=== PATIENT | female | born 1955 | race Caucasian/White ===

== ENCOUNTER → 2018-04-01 15:52 | Outpatient (CLI) | payer OTHER, SELFPAY ==
[2018-04-01 17:37] LABS: Absolute Lymphocyte Count 1.93 X10^3/ul (0.83-4.51); Absolute Neutrophil Count 4.4 X10^3/uL (2.0-7.7); Basophil# 0.03 X10^3/uL; Basophil% 0.4 % (0-1); Eosinophil# 0.11 X10^3/uL; Eosinophils% 1.6 % (0-5); Hematocrit 39.7 % (37-47); Hemoglobin 13.1 g/dl (12.0-15.0); Lymphocyte # 1.93 X10^3/ul (4.0); Lymphocyte % 27.4 % (19-41); Mean Corpuscular Hgb 28.2 pg (27.0-32.0); Mean Corpuscular Volume 85.4 fL (81-99); Mean Platelet Vol. 13.3 fl (6.2-12.0); Monocyte# 0.55 X10^3/uL; Monocyte% 7.8 % (0-10); Neutrophil # 4.41 X10^3/uL (2.7-7.7); Neutrophil % 62.5 % (47-70); Platelet Count 169 K/mm3 (150-450); RBC Distribution Width CV 15.2 % (11.6-14.6); RBC Distribution Width SD 46.2 fl (35.1-43.9); Red Blood Count 4.65 M/mm3 (4.2-5.4); White Blood Count 7.1 K/mm3 (4.4-11.0)
[2018-04-01 17:54] LABS: POSITIVE COUNT NO; POSITIVE DIFFERENTIAL NO; POSITIVE MORPHOLOGY NO
[2018-04-01 17:58] LABS: D-Dimer Quantitative (DVT/PE) 1.84 FEU/ug/m (0.27-0.49)
[2018-04-01 18:02] LABS: ALB/GLOB Ratio 0.9 RATIO (0.9-2.4); AST(SGOT) 81 U/L (15-37); Alanine Aminotransfer ALT/SGPT 119 U/L (13-56); Albumin, Serum 3.6 g/dL (3.2-5.0); Alkaline Phosphatase 92 U/L (45-117); Anion Gap 10 (5-15); BUN 9 mg/dL (7-18); BUN/Creat Ratio 11.8 RATIO (10-20); Calcium,Total 8.8 mg/dL (8.5-10.1); Chloride 110 mmol/L (98-107); Creatinine, Serum 0.76 mg/dL (0.55-1.02); EST Glomerular Filtration Rate 81 mL/min (>60); Est Glom Filt Rate - Afr Amer 98 mL/min (>60); Globulin 3.8 g/dL (2.2-4.2); Glucose 85 mg/dL (74-106); Potassium 3.6 mmol/L (3.5-5.1); Protein, Total 7.4 g/dL (6.4-8.2); Sodium Level 145 mmol/L (136-145); Thyroid Stim Hormone (TSH) 7.01 uIU/mL (0.358-3.74)
== END ==
PROVIDERS: Family Provider Family Medicine; PCP Family Medicine; Visit Provider Family Medicine
DX: I26.99 Other pulmonary embolism without acute cor pulmonale (principal); R06.00 Dyspnea, unspecified; R05 Cough; R00.0 Tachycardia, unspecified
CPT/HCPCS: 36415; 80053; 84443; 85025; 85379

== ENCOUNTER → 2018-04-03 07:39 | Outpatient (CLI) | payer OTHER, SELFPAY ==
--- NOTE | 2018-04-03 07:45 | CT_ITS ---
STUDY: CTA CHEST REASON FOR EXAM: Female, 62 years old. Short of breath. Elevated d-dimer. RADIATION DOSAGE (If Supplied By Facility): CTDIvol = ( 26.69 ) mGy, DLP = ( 661.04 ) mGycm TECHNIQUE: The examination was performed with the intravenous administration of 100CC ml of Isovue 370 contrast material. Post-processing of the angiographic images was performed, with multiplanar reformation and 3D reconstruction. Individualized dose optimization techniques were used for this CT. COMPARISON: None. FINDINGS: Normal enhancement of the main pulmonary artery and right and left pulmonary arteries. Normal enhancement of the bilateral peripheral pulmonary arteries. There is no demonstrated pulmonary embolism. Normal thoracic aorta and visualized great vessels. There is no demonstrated aortic dissection. Normal heart and pericardium. There is suspicious for mediastinal adenopathy primarily along the right paratracheal region where a 2.8 cm right paratracheal lymph node is seen on axial image 162. Malignancy cannot be excluded. Normal visualized trachea and bronchi. The lungs are well expanded. Normal pulmonary parenchyma. Bilateral small pleural effusions right worse than left. Normal chest wall structures. Normal osseous structures. Normal visualized upper abdomen. CT/CTA Chest W/WO Contrast IMPRESSION: Normal CTA chest examination, without a demonstrated pulmonary embolism or arterial dissection. Bilateral pleural effusions. Suspicious upper mediastinal adenopathy with one lymph node as much as 2.8 cm. Consider biopsy. Electronically Signed: Greg Rodriguez MD at 19:36 EDT , Service support ,
== END ==
PROVIDERS: Family Provider Family Medicine; PCP Family Medicine; Visit Provider Family Medicine
DX: R06.00 Dyspnea, unspecified (principal); R05 Cough; R79.89 Other specified abnormal findings of blood chemistry
CPT/HCPCS: 71275; Q9967

== ENCOUNTER → 2018-05-14 10:58 | Outpatient (CLI) | payer OTHER, SELFPAY ==
--- NOTE | 2018-05-14 10:59 | RAD_ITS ---
STUDY: X-RAY CHEST REASON FOR EXAM: Female, 62 years old. Atrial fibrillation. TECHNIQUE: PA and lateral chest COMPARISON: None. FINDINGS: The lungs are clear and expanded. The minimal left pleural effusion may be present. Mild cardiomegaly. Normal mediastinum and rita. Normal visualized pulmonary arteries. Normal visualized aortic arch and descending thoracic aorta. Degenerative changes of the thoracic spine. Normal visualized ribs, clavicles, and shoulders. There is no demonstrated abnormality of the visualized soft tissue structures of the upper abdomen. RAD/Chest PA and Lateral IMPRESSION: Mild cardiomegaly. Possible minimal left pleural effusion. Electronically Signed: Antoine Schofield MD at 7:59 EDT , Service support ,
== END ==
PROVIDERS: Family Provider Family Medicine; PCP Family Medicine; Visit Provider Internal Medicine Cardiovascular Disease
DX: I48.91 Unspecified atrial fibrillation (principal); R06.02 Shortness of breath; R06.00 Dyspnea, unspecified
CPT/HCPCS: 71046

== ENCOUNTER → 2018-05-28 06:45 | Outpatient (CLI) | payer OTHER, SELFPAY ==
--- NOTE | 2018-05-28 06:47 | ECHOD_ITS ---
Reason For Study: AFIB/FLUTTER Procedure This was a 2D Doppler, Color Flow transthoracic echocardiogram. The exam was of fair technical quality due to body habitus. The study was technically difficult. Exam performed in department. Left Ventricle Normal LV size. Left ventricular systolic function is normal. The estimated ejection fraction is 55 %. Unable to assess diastolic dysfunction. No regional wall motion abnormalities noted. Right Ventricle Normal RV size. Normal systolic function. Atria The left atrium is mildly enlarged. The right atrium is moderately enlarged. No doppler evidence for ASD. Mitral Valve There is no mitral annular calcification. Normal mitral valve. Mild-Moderate (1-2+) mitral valve insufficiency. Tricuspid Valve Normal tricuspid valve. Moderate (2+) eccentric tricuspid valve insufficiency. Right ventricular systolic pressure estimated to be 30 mmHg. Aortic Valve Trisinus/trileaflet aortic valve. Mild diffuse aortic valve thickening. Mild focal aortic valve calcification. Pulmonic Valve The pulmonic valve is not well visualized. Great Vessels Normal sized aortic root. Pericardium/Pleural Trivial pericardial effusion. There are no echocardiographic indications of cardiac tamponade. MMode/2D Measurements & Calculations LVIDd: 5.3 cm IVSd: 1.1 cm Ao root diam: 3.1 cm LVIDs: 3.9 cm LVPWd: 1.1 cm LA dimension: 4.8 cm RVDd: 3.7 cm FS: 26.1 % LAV(MOD-bp): 88.1 ml LA A4 area: 24.8 cm2 RA A4 area: 23.5 cm2 LAV(MOD-bp) Indexed: 38.9 ml/m2 LAV(MOD-sp2): 93.4 ml LAV(MOD-sp4): 85.8 ml Doppler Measurements & Calculations MV E max rickie: 118.8 cm/sec Ao V2 max: 137.3 cm/sec LV V1 max: 94.4 cm/sec Ao max P.6 mmHg LV V1 max P.6 mmHg PA V2 max: 88.8 cm/sec TR max rickie: 260.5 cm/sec TR max P.3 mmHg Interpretation Summary The study was technically difficult. Left ventricular systolic function is normal. The estimated ejection fraction is 55 %. The left atrium is mildly enlarged. The right atrium is moderately enlarged. Mild-Moderate (1-2+) mitral valve insufficiency. Moderate (2+) eccentric tricuspid valve insufficiency. Mild diffuse aortic valve thickening. Mild focal aortic valve calcification. Trivial pericardial effusion. There are no echocardiographic indications of cardiac tamponade. Right ventricular systolic pressure estimated to be 30 mmHg. Unable to assess diastolic dysfunction. Ordering Physician: Mark Walters Referring Physician: Jared Power Performed By: Jessie Rodrigues, DURGA, RVT
--- NOTE | 2018-05-28 18:09 | STRESSREP ---
Stress Test Report Date: 02/12/2018 Procedure: Pharmacologic stress nuclear imaging study Indications: Shortness of breath/dyspnea; atrial fibrillation Consent: Per the patient Procedure: The patient underwent pharmacologic (Regadenoson) evaluation with a peak heart rate of 117 beats per minute (75 predicted maximal heart rate) and a peak blood pressure of 142/82 mmHg. The baseline ECG demonstrated atrial fibrillation; nonspecific T-wave abnormality. The peak pharmacologic ECG demonstrated continued nonspecific T-wave abnormality. There was an isolated PVC during recovery. There was no complaint of chest discomfort during pharmacologic infusion or recovery. The examination was discontinued secondary to completion of protocol. Impression: 1. Pharmacologic (Regadenoson) evaluation 2. Peak pharmacologic ECG with continued nonspecific T-wave abnormality. 3. There was an isolated PVC during recovery. 4. Nuclear images pending Myocardial perfusion imaging study: Technique: The patient was injected with 14.6 millicuries of technetium 99m Cardiolite and subsequently rest SPECT Cardiolite nuclear imaging was obtained in the horizontal long, vertical long, and short axis views. The patient underwent pharmacologic (Regadenoson) evaluation with a peak heart rate of 117 beats per minute (75 % percent predicted maximal heart rate) and a peak blood pressure of 142/82 mmHg. The patient was injected with 44.8 millicuries of technetium 99m Cardiolite and subsequently stress SPECT Cardiolite nuclear imaging was obtained in the horizontal long, vertical long, and short axis views. A gated Cardiolite study at peak stress was obtained. Interpretation: Rest and stress SPECT Cardiolite nuclear imaging status post realignment, normalization, and attenuation correction demonstrate relative uniform tracer uptake and myocardial perfusion appearing within normal limits. There is end systolic thickening and brightening. The gated Cardiolite study demonstrates myocardial thickening and inward wall motion. The reported LVEF is 55 %. Impression: 1. Rest and stress SPECT Cardiolite nuclear imaging demonstrate relative uniform tracer uptake and myocardial perfusion appearing within normal limits. 2. The gated Cardiolite study reports an LVEF of 55 %. This note was generated with [employer] software. It may contain incorrect words, spelling, and punctuation that were not noted in checking the note before signing.
--- NOTE | 2018-05-28 18:13 | STRESSREP_ITS ---
Stress Test Report Date: 02/12/2018 Procedure: Pharmacologic stress nuclear imaging study Indications: Shortness of breath/dyspnea; atrial fibrillation Consent: Per the patient Procedure: The patient underwent pharmacologic (Regadenoson) evaluation with a peak heart rate of 117 beats per minute (75 predicted maximal heart rate) and a peak blood pressure of 142/82 mmHg. The baseline ECG demonstrated atrial fibrillation; nonspecific T-wave abnormality. The peak pharmacologic ECG demonstrated continued nonspecific T- wave abnormality. There was an isolated PVC during recovery. There was no complaint of chest discomfort during pharmacologic infusion or recovery. The examination was discontinued secondary to completion of protocol. Impression: 1. Pharmacologic (Regadenoson) evaluation 2. Peak pharmacologic ECG with continued nonspecific T-wave abnormality. 3. There was an isolated PVC during recovery. 4. Nuclear images pending Myocardial perfusion imaging study: Technique: The patient was injected with 14.6 millicuries of technetium 99m Cardiolite and subsequently rest SPECT Cardiolite nuclear imaging was obtained in the horizontal long, vertical long, and short axis views. The patient underwent pharmacologic (Regadenoson) evaluation with a peak heart rate of 117 beats per minute (75 % percent predicted maximal heart rate) and a peak blood pressure of 142/82 mmHg. The patient was injected with 44.8 millicuries of technetium 99m Cardiolite and subsequently stress SPECT Cardiolite nuclear imaging was obtained in the horizontal long, vertical long, and short axis views. A gated Cardiolite study at peak stress was obtained. Interpretation: Rest and stress SPECT Cardiolite nuclear imaging status post realignment, normalization, and attenuation correction demonstrate relative uniform tracer uptake and myocardial perfusion appearing within normal limits. There is end systolic thickening and brightening. The gated Cardiolite study demonstrates myocardial thickening and inward wall motion. The reported LVEF is 55 %. Impression: 1. Rest and stress SPECT Cardiolite nuclear imaging demonstrate relative uniform tracer uptake and myocardial perfusion appearing within normal limits. 2. The gated Cardiolite study reports an LVEF of 55 %. This note was generated with [employer] software. It may contain incorrect words, spelling, and punctuation that were not noted in checking the note before signing.
== END ==
PROVIDERS: Family Provider Family Medicine; PCP Family Medicine; Visit Provider Internal Medicine Cardiovascular Disease
DX: I48.91 Unspecified atrial fibrillation (principal); I48.92 Unspecified atrial flutter
CPT/HCPCS: 78452; 93017; 93306; A9500; A4216; J2785

== ENCOUNTER → 2018-06-27 10:09 | Outpatient (CLI) | payer OTHER, SELFPAY ==
--- NOTE | 2018-06-27 10:10 | CT_ITS ---
STUDY: CT CHEST WITH CONTRAST REASON FOR EXAM: Female, 62 years old. Mediastinal lymphadenopathy, follow-up. RADIATION DOSAGE (If Supplied By Facility): CTDIvol = ( 35.10 ) mGy, DLP = ( 922.24 ) mGycm TECHNIQUE: Transaxial imaging was performed following intravenous administration of 100 ml of Isovue 300 contrast material. Coronal and sagittal 2-D MPR. Individualized dose optimization techniques were used for this CT. COMPARISON: CTA chest 04/03/2018. FINDINGS: Supraclavicular: No acute process. Thoracic body wall soft tissues: No acute process. Osseous structures: Mild scoliosis, osteopenia, mild thoracic kyphosis. Multilevel cervical degenerative disc disease with uncovertebral joint hypertrophy contributing to foraminal stenosis. No acute osseous process. Upper abdomen: Mild pancreatic atrophy. No acute process is evident in limited evaluation. Mediastinum: Normal esophagus. The degree of mediastinal lymphadenopathy has substantially improved compared to recent prior imaging. The largest residual lymph node has a short axis dimension of approximately 19 mm. The same node previously had a least dimension of about 23 mm. Several other nodes are present, considerably smaller than seen on prior study. Heart: Mild cardiomegaly. Small pericardial effusion. The pericardial effusion is improved. No visible coronary calcifications. Aorta: Mild nonaneurysmal ectasia 3.4 cm. Minimal atherosclerosis. Widely patent three-vessel cervical arch branching. No dissection. Pulmonary arteries: Ectatic central pulmonary arteries, main pulmonary artery 3.3 cm. There is no large central pulmonary embolus. Lungs: No residual pleural effusion. Minimal left lung base atelectasis. No infiltrate or focal suspicious lesion. Normal airways. CT/Chest WITH Contrast IMPRESSION: Markedly improved mediastinal lymphadenopathy. Resolved pleural effusions. Small pericardial effusion, improving. No acute pulmonary process at this time. Mild cardiomegaly. Mild aortomegaly. Ectatic central pulmonary arteries. Electronically Signed: Mohit Colon, at 17:56 EDT Tel , Service support ,
[2018-06-27 10:30] LABS: CREATININE FINGERSTICK < 0.6 mg/dL (0.55-1.02); EGFR FINGERSTICK > 60.0000 mL/min (>60)
== END ==
PROVIDERS: Family Provider Family Medicine; PCP Family Medicine; Visit Provider Internal Medicine Critical Care Medicine
DX: R59.0 Localized enlarged lymph nodes (principal)
CPT/HCPCS: 71260; Q9967

== ENCOUNTER → 2018-09-18 13:15 | Outpatient (CLI) | payer MEDICARE, SELFPAY ==
--- NOTE | 2018-09-18 13:23 | RAD_ITS ---
STUDY: X-RAY - RIGHT SHOULDER REASON FOR EXAM: Female, 63 years old. Pain. TECHNIQUE: 3 view(s) of the shoulder. COMPARISON: None. FINDINGS: There is no evidence of fracture or dislocation. There are moderate degenerative changes in the acromioclavicular joint. There are no radiodense foreign bodies. RAD/Shoulder min 2 Views IMPRESSION: No fracture or dislocation. Moderate degenerative changes in the acromioclavicular joint. Electronically Signed: Buzz Rodriguez, at 14:24 EDT Tel , Service support ,
--- NOTE | 2018-09-18 13:23 | RAD_ITS ---
STUDY: X-RAY - RIGHT KNEE REASON FOR EXAM: Female, 63 years old. Pain TECHNIQUE: 5 view(s) of the knee. COMPARISON: None. FINDINGS: There is no evidence of fracture or dislocation. There are severe tricompartmental degenerative changes. There are no radiodense foreign bodies. RAD/Knee 4 or More Views IMPRESSION: No fracture or dislocation. Severe tricompartmental degenerative changes. Electronically Signed: Buzz Rodriguez, at 14:22 EDT Tel , Service support ,
--- NOTE | 2018-09-18 13:24 | RAD_ITS ---
STUDY: X-RAY - LEFT KNEE REASON FOR EXAM: Female, 63 years old. Pain TECHNIQUE: Four view(s) of the knee were obtained. COMPARISON: Left knee report dated May 08, 2012 FINDINGS: There are small osteophytes on the distal femur. There are small osteophytes on the tibial plateau. There is moderate narrowing of the medial femorotibial compartment. Normal lateral femorotibial compartment. There is mild degenerative arthrosis of the patellofemoral articulation. There is no fullness above the patella. The soft tissue structures are unremarkable. RAD/Knee 4 or More Views IMPRESSION: There are degenerative changes in the left knee, most severe and moderate in the medial compartment. Electronically Signed: Jackelyn Núñez MD at 0:06 EDT Tel Direct: [phone], Service support ,
== END ==
PROVIDERS: Family Provider Family Medicine; PCP Family Medicine
DX: S43.401A Unspecified sprain of right shoulder joint, initial encounter (principal); S83.91XA Sprain of unspecified site of right knee, initial encounter; S83.92XA Sprain of unspecified site of left knee, initial encounter; S46.911A Strain of unspecified muscle, fascia and tendon at shoulder and upper arm level, right arm, initial encounter; S86.911A Strain of unspecified muscle(s) and tendon(s) at lower leg level, right leg, initial encounter; S86.912A Strain of unspecified muscle(s) and tendon(s) at lower leg level, left leg, initial encounter; X58.XXXA Exposure to other specified factors, initial encounter; Y93.9 Activity, unspecified; Y92.9 Unspecified place or not applicable; Y99.9 Unspecified external cause status
CPT/HCPCS: 73030; 73564

== ENCOUNTER → 2018-10-31 12:29 | Outpatient (REF) | payer MEDICARE, SELFPAY | LOC: CVS 12:29 | PROVIDERS: Family Provider Family Medicine; PCP Family Medicine; Referring Provider Internal Medicine Cardiovascular Disease; Visit Provider Internal Medicine Cardiovascular Disease | DX: I48.91 Unspecified atrial fibrillation (principal) | CPT/HCPCS: 93270 ==

== ENCOUNTER → 2019-11-06 08:57 | Outpatient (CLI) | payer MEDICARE, SELFPAY ==
[2019-10-07 06:58] VITALS: BMI 50.2
[2019-11-06 12:22] LABS: Absolute Lymphocyte Count 1.91 X10^3/uL (0.83-4.51); Absolute Neutrophil Count 3.6 X10^3/uL (2.0-7.7); Basophil# 0.03 X10^3/uL; Basophil% 0.5 % (0-1); Eosinophil# 0.09 X10^3/uL; Eosinophils% 1.5 % (0-5); Hematocrit 44.2 % (37-47); Hemoglobin 14.2 g/dL (12.0-15.0); Lymphocyte # 1.91 X10^3/ul (4.0); Lymphocyte % 31.3 % (19-41); Mean Corp Hgb Conc 32.1 g/dL (32-36); Mean Corpuscular Volume 87.2 fL (81-99); Monocyte# 0.41 X10^3/uL; Monocyte% 6.7 % (0-10); NRBC Flagged by Analyzer 0 % (0-5); Neutrophil # 3.64 X10^3/uL (2.7-7.7); Neutrophil % 59.5 % (47-70); Platelet Count 176 K/mm3 (150-450); RBC Distribution Width CV 13.6 % (11.6-14.6); RBC Distribution Width SD 42.7 fl (35.1-43.9); Red Blood Count 5.07 M/mm3 (4.2-5.4); White Blood Count 6.1 K/mm3 (4.4-11.0)
[2019-11-06 12:59] LABS: AST(SGOT) 31 U/L (15-37); Alanine Aminotransfer ALT/SGPT 58 U/L (13-56); Albumin, Serum 3.9 g/dL (3.2-5.0); Alkaline Phosphatase 80 U/L (45-117); Anion Gap 8 (5-15); BUN 13 mg/dL (7-18); BUN/Creat Ratio 15.3 RATIO (10-20); Calcium,Total 9.1 mg/dL (8.5-10.1); Chloride 109 mmol/L (98-107); Cholesterol 178 mg/dL (200); Creatinine, Serum 0.85 mg/dL (0.55-1.02); EST Glomerular Filtration Rate 71 mL/min (>60); Est Glom Filt Rate - Afr Amer 86 mL/min (>60); Free T3 3.2 pg/mL (2.18-3.98); Globulin 3.8 g/dL (2.2-4.2); Glucose 98 mg/dL (74-106); High Density Lipoprotein 41 mg/dL; Potassium 3.5 mmol/L (3.5-5.1); Protein, Total 7.7 g/dL (6.4-8.2); Sodium Level 144 mmol/L (136-145); T4 Free Direct 1.05 ng/dL (0.76-1.46); Triglycerides 132 mg/dL; Very Low Density Lipoprotein 26 mg/dL (5-40)
[2019-11-14 16:40] LABS: T3 Reverse 29.2 ng/dL (9.2-24.1); Thyroid Peroxidase AB 6 IU/mL (0-34)
== END ==
PROVIDERS: Family Provider Family Medicine; PCP Family Medicine; Visit Provider Family Medicine
DX: R94.6 Abnormal results of thyroid function studies (principal); R74.8 Abnormal levels of other serum enzymes; E78.5 Hyperlipidemia, unspecified; I48.0 Paroxysmal atrial fibrillation; Z51.81 Encounter for therapeutic drug level monitoring
CPT/HCPCS: 36415; 80053; 80061; 84439; 84443; 84481; 84482; 85025; 86376

== ENCOUNTER → 2020-07-26 10:16 | Outpatient (CLI) | payer MEDICARE, SELFPAY ==
[2020-01-05 10:33] VITALS: BMI 50.7
[2020-07-28 10:39] LABS: HPV APTIMA, High Risk Negative (Negative)
[2020-07-28 10:40] LABS: HPV Reflexed? YES, CHARGE PATIENT
== END ==
PROVIDERS: PCP Family Medicine; Visit Provider Student in an Organized Health Care Education/Training Program
DX: Z12.4 Encounter for screening for malignant neoplasm of cervix (principal)
CPT/HCPCS: 87624; 88175; G0145

== ENCOUNTER 2022-01-06 13:24 | Outpatient (CLI) | payer MEDICARE, SELFPAY ==
[2022-01-06 15:39] LABS: AST(SGOT) 53 U/L (15-37); Alanine Aminotransfer ALT/SGPT 67 U/L (13-56); Albumin, Serum 3.7 g/dL (3.2-5.0); Alkaline Phosphatase 76 U/L (45-117); Cholesterol 155 mg/dL (200); High Density Lipoprotein 45 mg/dL; Protein, Total 7.7 g/dL (6.4-8.2); Triglycerides 91 mg/dL; Very Low Density Lipoprotein 18 mg/dL (5-40)
== END 2022-01-06 23:59 | disposition home or self-care (01) ==
PROVIDERS: PCP Family Medicine; Referring Provider Internal Medicine Cardiovascular Disease; Visit Provider Internal Medicine Cardiovascular Disease
DX: E66.01 Morbid (severe) obesity due to excess calories (principal); I48.0 Paroxysmal atrial fibrillation; I38 Endocarditis, valve unspecified
CPT/HCPCS: 36415; 80061; 80076

== ENCOUNTER 2022-02-07 09:35 | Outpatient (CLI) | payer MEDICARE, SELFPAY ==
--- NOTE | 2022-02-07 09:37 | ECHOCS_ITS ---
Reason For Study: ATRIAL FIB-FLUTTER Procedure This was a 2D Doppler, Color Flow transthoracic echocardiogram. The study was technically difficult. Contrast injection was performed. Exam performed in department. Left Ventricle Normal LV size. Left ventricular systolic function is normal. The estimated ejection fraction is 55 %. Unable to assess diastolic dysfunction. No regional wall motion abnormalities noted. Right Ventricle Normal RV size. Normal systolic function. Atria Normal left atrium. The right atrium is mildly enlarged. No doppler evidence for ASD. Mitral Valve There is no mitral annular calcification. Normal mitral valve. Trivial mitral valve insufficiency. Tricuspid Valve Normal tricuspid valve. Trivial tricuspid valve insufficiency. Right ventricular systolic pressure estimated to be 24 mmHg. Aortic Valve Trisinus/trileaflet aortic valve. Mild diffuse aortic valve thickening. Mild focal aortic valve calcification. Pulmonic Valve The pulmonic valve is not well visualized. Great Vessels Normal sized aortic root. Pericardium/Pleural No pericardial effusion. Medication 22 gauge I.V. with prn adaptor inserted into left arm. Diluted definity 5ml given slow IV push to enhance endocardial definition. MMode/2D Measurements & Calculations LVIDd: 5.2 cm IVSd: 1.0 cm Ao root diam: 3.3 cm LVIDs: 3.5 cm LVPWd: 1.0 cm RVDd: 4.0 cm FS: 34.1 % LAV(MOD-bp): 46.5 ml LVAd ap4: 27.4 cm2 SV(MOD-sp4): 53.8 ml LAV(MOD-bp) Indexed: 19.7 ml/m2 LVLd ap4: 7.2 cm LAV(MOD-sp2): 47.5 ml EDV(MOD-sp4): 87.4 ml LAV(MOD-sp4): 46.8 ml EDV(sp4-el): 88.8 ml LVAs ap4: 14.8 cm2 LVLs ap4: 5.4 cm ESV(MOD-sp4): 33.6 ml ESV(sp4-el): 34.2 ml EF(MOD-sp4): 61.5 % EF(sp4-el): 61.5 % SV(sp4-el): 54.6 ml LA A4 area: 18.9 cm2 LA dimension(2D): 3.9 cm RA A4 area: 22.5 cm2 Doppler Measurements & Calculations MV E max rickie: 88.9 cm/sec Ao V2 max: 145.7 cm/sec LV V1 max: 81.4 cm/sec Ao max P.5 mmHg LV V1 max P.7 mmHg PA V2 max: 80.6 cm/sec TR max rickie: 229.3 cm/sec TR max P.0 mmHg ECHO/Echo Complete W/ Contrast Interpretation Summary The study was technically difficult. Contrast injection was performed. Left ventricular systolic function is normal. The estimated ejection fraction is 55 %. The right atrium is mildly enlarged. Trivial mitral valve insufficiency. Trivial tricuspid valve insufficiency. Mild diffuse aortic valve thickening. Mild focal aortic valve calcification. Right ventricular systolic pressure estimated to be 24 mmHg. Unable to assess diastolic dysfunction. Ordering Physician: Mark Walters Referring Physician: ROXANA BORJAS Performed By: Brianna Childers RDCS
== END 2022-02-07 23:59 | disposition home or self-care (01) ==
LOC: CVS 09:36
PROVIDERS: PCP Family Medicine; Referring Provider Internal Medicine Cardiovascular Disease; Visit Provider Internal Medicine Cardiovascular Disease
DX: Z86.711 Personal history of pulmonary embolism (principal); I48.92 Unspecified atrial flutter
CPT/HCPCS: 93306; Q9957; A4216; C8929

== ENCOUNTER → 2022-09-21 | Outpatient (CLI) | payer MEDICARE, SELFPAY ==
--- NOTE | 2022-09-21 08:03 | ECHOD_ITS ---
Reason For Study: AFIB Procedure This was a 2D Doppler, Color Flow transthoracic echocardiogram. The study was technically difficult. Contrast injection was performed. Exam performed in department. Left Ventricle On the 2D echocardiographic and contrast enhanced images obtained there appears to be grossly normal left ventricular size, wall motion, and systolic function. The estimated ejection fraction is 55 %. Unable to assess diastolic dysfunction. Right Ventricle Based upon the 2D echocardiographic images obtained there appears to be grossly normal right ventricular size and systolic function. Atria The left atrium is moderately enlarged. The right atrium is moderately enlarged. No doppler evidence for ASD. Mitral Valve There is no mitral annular calcification. Normal mitral valve. Trivial mitral valve insufficiency. Tricuspid Valve Normal tricuspid valve. Trivial tricuspid valve insufficiency. Unable to estimate RV systolic pressure/pulmonary artery pressure due to technically difficult study. Aortic Valve Trisinus/trileaflet aortic valve. Mild focal aortic valve calcification. Pulmonic Valve The pulmonic valve is not well visualized. Great Vessels Normal sized aortic root. Pericardium/Pleural No pericardial effusion. Epicardial fat. Medication 22 gauge I.V. with prn adaptor inserted into right arm. Diluted definity 2ml given slow IV push to enhance endocardial definition. MMode/2D Measurements & Calculations LVIDd: 4.3 cm IVSd: 1.1 cm Ao root diam: 3.6 cm LVIDs: 3.0 cm LVPWd: 1.4 cm FS: 30.1 % LAV(MOD-sp4): 92.6 ml LA A4 area: 28.0 cm2 LA dimension(2D): 5.1 cm RA A4 area: 24.0 cm2 Doppler Measurements & Calculations MV E max rickie: 83.9 cm/sec Ao V2 max: 127.0 cm/sec LV V1 max: 61.5 cm/sec Ao max P.5 mmHg LV V1 max P.5 mmHg Ao V2 mean: 91.1 cm/sec LV V1 mean P.94 mmHg Ao mean P.7 mmHg LV V1 mean: 46.8 cm/sec Ao V2 VTI: 24.2 cm LV V1 VTI: 11.7 cm PA V2 max: 119.6 cm/sec PA V2 mean: 85.1 cm/sec ECHO/Echo Complete W/ Contrast Interpretation Summary The study was technically difficult. Contrast injection was performed. On the 2D echocardiographic and contrast enhanced images obtained there appears to be grossly normal left ventricular size, wall motion, and systolic function The estimated ejection fraction is 55 %. The left atrium is moderately enlarged. The right atrium is moderately enlarged. Trivial mitral valve insufficiency. Trivial tricuspid valve insufficiency. Mild focal aortic valve calcification. Epicardial fat. Unable to estimate RV systolic pressure/pulmonary artery pressure due to techni mark difficult study. Unable to assess diastolic dysfunction. Ordering Physician: Estefany Marroquin Referring Physician: Estefany Marroquin Performed By: Tonja Higgins RCS
== END | disposition home or self-care (01) ==
PROVIDERS: PCP Family Medicine; Referring Provider Physician Assistant Medical; Visit Provider Physician Assistant Medical
DX: I48.0 Paroxysmal atrial fibrillation (principal); I38 Endocarditis, valve unspecified; Z86.711 Personal history of pulmonary embolism
CPT/HCPCS: 93225; 93226; 93306; Q9957; A4216; C8929

== ENCOUNTER 2023-02-16 07:00 | Outpatient (RCR) | payer MEDICARE, SELFPAY ==
--- NOTE | 2023-01-19 09:02 | HP.PTEVAL_ITS ---
Patient's Visit Information MARY SELLERS is a 67 year old F referred to Physical Therapy by SILVINA DOBBS with a diagnosis of BILATERAL KNEE PAIN. Date of Evaluation: 01/19/23 Physical Therapist: Han Cuevas, PT, Cert MDT, OCS - Visit Plan Frequency: 2x /Week Duration: 4 Weeks Plan: PT INTERVETIONS ROM/FLEXABILITY KNEES ,STRENGTHENING QUADS/HAMS/HIPS ,FUNCTIONAL STRENGTHENING AND ENDURANCE - Subjective This 67 y/o female presents to physical therapy with bilateral knee. Patient has had knee pain many years. Patient seen tried stem cell and PPRP. Patient trying not have TKR . Patient has pain right > left medial > lateral. Patient has had x-rays showed severe DJD. Dr recommended PT . Aggravating walking ,standing unable to squat or kneel. Stairs one steps at time. Alleviating factors rest. Denies paresthesia/tingling. Patient pain affects sleeping. Patient pain affects QOL and function. Patient trying to avoid surgery. SOCIAL: . VOCATION: retired - Pain Right Knee Pain Intensity (Out of 10): 7 Pain Intensity Range: 10 Left Knee Pain Intensity (Out of 10): 6 Pain Intensity Range: 10 - Objective POSTURE: bilateral knee valgus. GAIT: antalgic gait waddling lateral reciprocal. NEURO: denies paresthesia/tingling. AROM: supine knee flexion right 10-95 ,left 10-90 degrees. MMT( peak force ) quads 12.7 right ,hamstrings 13.2 ,hamstrings 14.2 right ,left 14.7 ,hip flexion 16.7. FLEXABLITY: hamstrings min tight. STAIRS: one step time - Special Tests R Knee Valgus - MCL: Negative R Knee Varus - LCL: Negative R Knee Patellar Apprehension - PFS: Positive R Knee Patellar Grind - PFS: Positive L Knee Valgus - MCL: Negative L Knee Varus - LCL: Negative L Knee Patellar Apprehension - PFS: Positive L Knee Patellar Grind - PFS: Positive - Balance/Special Test Scores Lower Extremity Functional Score: 17 - Goals Goal 1:: I with HEP for knee's Goal Time Frame: 4-6 Weeks Goal 2:: Patient to demonstrate 50 % improvement with decrease pain and improved function Goal Time Frame: 4-6 Weeks Goal 3:: Patient to improve AROM bilateral knee flexion by 5-1o degrees to improve function Goal Time Frame: 4-6 Weeks Goal 4:: Patient to improve peak force quads/hams by 5 points > to improve function. Goal Time Frame: 4-6 Weeks Goal 5:: Patient to improve LFES score by 5-10 points to improve gait and QOL. Goal Time Frame: 4-6 Weeks - Rehabilitation Potential Physical Therapy Diagnosis: Patient has bilateral knee pain with DJD with decrease ROM ,weakness quads/hams ,decrease walking and stairs impairs housework tasks and ADL's thus benefit from skilled PT Rehabilitation Potential: Good - Anticipated Interventions Patient/Client Instruction: Educate patient on: Condition, Plan of Care For the Purpose of:: To decrease pain, To increase ROM, To improve muscle performance and motor function, To increase tolerance to activity/condition/position, To improve performance and independence with ADL's, To improve ability of physical actions for home/community/work/leisure, To improve health of tissue, To decrease soft tissue restriction, To increase flexibility/ROM, To improve endurance, To improve tolerance to ADL's Therapeutic Exercise to Include: Strength training, Endurance training, Balance training, Flexibilty training, Active ROM Comment: BLE For the Purpose of:: To decrease pain, To increase ROM, To improve muscle perf ormance and motor function, To increase tolerance to activity/condition/position, To improve ability of physical actions for home/community/work/leisure, To improve health of tissue, To decrease soft tissue restriction, To increase flexibility/ROM, To improve endurance, To improve balance TENS: Yes IF ES: Yes Cryotherapy (ice pack, ice massage): Yes Thermo therapy (hot pack): Yes Ultrasound (thermal/non thermal): Yes For the Purpose of:: To decrease pain, To increase ROM, To improve nutrient delivery to tissue, To increase oxygenation perfusion, To improve health of tissue, To decrease soft tissue restriction Thank you for the opportunity to evaluate your patient. For Medicare and Medicare HMO plans, please review the plan of care and approve it. It will need to be FAXED BACK to us at [phone] for Medicare purposes. For Medicare only, by signing this I certify the plan of care. Please let me know if there are questions or concerns regarding this plan of care. Physician Signature: Date:
--- NOTE | 2023-02-16 08:06 | HP.PTDCSUM ---
It has been my pleasure to treat MARY SELLERS referred by SILVINA DOBBS, with the diagnosis of BILATERAL KNEE PAIN for a total of 8 visit(s). Discharge Date: 02/16/23 Please see the following information for a summary of their discharge status. Subjective: Doing okay ..RTD IN MARCH Right Knee Pain Intensity (Out of 10): 6 Left Knee Pain Intensity (Out of 10): 6 % Improvement: 20 Objective/Function: POSTURE: mild forward posture. GAIT: mild forward posture waddle gait pattern. MMT: QUAD 15.8 ,HAMSTRINGS 16.8. AROM: supine left knee flexion 10 -105 degrees ,right 10-110 degrees Goal 1:: I with HEP for knee's Goal Progress: Goal Met Goal 2:: Patient to demonstrate 50 % improvement with decrease pain and improved function Goal Progress: Progressing Goal 3:: Patient to improve AROM bilateral knee flexion by 5-1o degrees to improve function Goal Progress: Goal Met Goal 4:: Patient to improve peak force quads/hams by 5 points > to improve function. Goal Progress: Goal Met Goal 5:: Patient to improve LFES score by 5-10 points to improve gait and QOL. Goal Progress: Goal Met Plan: D/C TO HEP/GTM AND If there are questions or concerns regarding this patient's physical therapy, please feel free to call me at [phone]. Thank you for the referral of this patient. Sincerely, Han Cuevas, PT, Cert MDT, OCS Balance/Gait/Functional tests - Balance/Special Test Scores Lower Extremity Functional Score: 45
== END 2023-02-16 19:00 | disposition home or self-care (01) ==
LOC: PT 07:00
PROVIDERS: PCP Family Medicine
DX: M17.0 Bilateral primary osteoarthritis of knee (principal)
CPT/HCPCS: 97110; 97162; 97530

== ENCOUNTER → 2024-01-29 | Outpatient (CLI) | payer MEDICARE, SELFPAY ==
[2024-01-29 15:27] LABS: Absolute Lymphocyte Count 2.14 X10^3/uL (0.83-4.51); Absolute Neutrophil Count 5.3 X10^3/uL (2.0-7.7); Basophil# 0.06 X10^3/uL; Basophil% 0.7 % (0-1); Eosinophil# 0.12 X10^3/uL; Eosinophils% 1.5 % (0-5); Hematocrit 44.1 % (37-47); Hemoglobin 13.8 g/dL (12.0-15.0); Lymphocyte # 2.14 X10^3/ul (0.83-4.51); Lymphocyte % 26.3 % (19-41); Mean Corp Hgb Conc 31.3 g/dL (32-36); Mean Corpuscular Hgb 28.2 pg (27.0-32.0); Mean Platelet Vol. 12.4 fl (6.2-12.0); Monocyte# 0.49 X10^3/uL; NRBC Flagged by Analyzer 0 % (0-5); Neutrophil # 5.31 X10^3/uL (2.7-7.7); Neutrophil % 65.1 % (47-70); Platelet Count 210 K/mm3 (150-450); RBC Distribution Width CV 14.9 % (11.6-14.6); RBC Distribution Width SD 49.3 fl (35.1-43.9); White Blood Count 8.2 K/mm3 (4.4-11.0)
[2024-01-29 15:44] LABS: Hemoglobin A1c 5.8 % (3.8-5.6)
[2024-01-29 16:05] LABS: AST(SGOT) 56 U/L (15-37); Alanine Aminotransfer ALT/SGPT 70 U/L (13-56); Albumin, Serum 3.8 g/dL (3.2-5.0); Alkaline Phosphatase 85 U/L (45-117); Anion Gap 7 (5-15); BUN 14 mg/dL (7-18); BUN/Creat Ratio 18.1 RATIO (10-20); Calcium,Total 9.3 mg/dL (8.5-10.1); Chloride 108 mmol/L (98-107); Cholesterol 149 mg/dL (200); Creatinine, Serum 0.77 mg/dL (0.55-1.02); EST Glomerular Filtration Rate 78 mL/min (>60); Est Glom Filt Rate - Afr Amer 95 mL/min (>60); Glucose 100 mg/dL (74-106); High Density Lipoprotein 46 mg/dL; Potassium 4.3 mmol/L (3.5-5.1); Protein, Total 7.8 g/dL (6.4-8.2); Sodium Level 143 mmol/L (136-145); T4 Free Direct 1.14 ng/dL (0.76-1.46); Thyroid Stim Hormone (TSH) 3.15 uIU/mL (0.358-3.74); Triglycerides 100 mg/dL; Very Low Density Lipoprotein 20 mg/dL (5-40)
== END | disposition home or self-care (01) ==
LOC: BFHLAB 11:23
PROVIDERS: PCP Family Medicine; Visit Provider Family Medicine
DX: I10 Essential (primary) hypertension (principal); I48.0 Paroxysmal atrial fibrillation; R79.89 Other specified abnormal findings of blood chemistry; R73.01 Impaired fasting glucose; R39.15 Urgency of urination
CPT/HCPCS: 36415; 80053; 80061; 83036; 84439; 84443; 85025; 87086; 87088

== ENCOUNTER → 2024-02-01 | Outpatient (CLI) | payer MEDICARE, SELFPAY ==
--- NOTE | 2024-02-01 11:01 | BI_ITS ---
MAMMOGRAPHY - BILATERAL SCREENING 3-D TOMOSYNTHESIS REASON FOR EXAM: Female, 68 years old. SCREEN PERTINENT HISTORY: No significant family history. TECHNIQUE: 2-D mammograms and 3-D Tomosynthesis of the breast (s) were performed. CAD was performed. COMPARISON: 03/16/1970 FINDINGS: The breast composition is composed of scattered fibroglandular density. Scattered benign calcifications are seen. No dense spiculated masses or suspicious microcalcifications are identified. No architectural distortion is identified. There is no skin thickening or retraction. There has been no significant change since the prior study. BI/SCRN MAMM (CAD)W/KENNEDY BILAT IMPRESSION: No mammographic signs of malignancy. Routine yearly mammograms recommended. ASSESSMENT CATEGORY: BIRADS Category 1: Negative. A letter regarding these results will be sent to the patient by the facility within 30 days. FOLLOW UP RECOMMENDATION: Yearly follow up mammogram recommended. (A) Approximately 10% of breast cancers are not detected by mammography. A normal mammogram should not delay biopsy of a clinically suspicious abnormality. Electronically Signed: Mohit Robert MD at 14:17 EST ,
== END | disposition home or self-care (01) ==
LOC: OPBI 10:59
PROVIDERS: PCP Family Medicine; Referring Provider Family Medicine; Visit Provider Family Medicine
DX: Z12.31 Encounter for screening mammogram for malignant neoplasm of breast (principal)
CPT/HCPCS: 77063; 77067

== ENCOUNTER → 2024-06-11 | Outpatient (CLI) | payer MEDICARE, SELFPAY | END | disposition home or self-care (01) | LOC: SL 11:32 | PROVIDERS: PCP Family Medicine; Visit Provider Nurse Practitioner Acute Care | DX: G47.33 Obstructive sleep apnea (adult) (pediatric) (principal) ==

== ENCOUNTER → 2024-12-16 | Outpatient (CLI) | payer OTHER, SELFPAY ==
[2024-12-16 11:33] LABS: Hematocrit 43.1 % (37-47); Hemoglobin 14.3 g/dL (12.0-15.0); Mean Corp Hgb Conc 33.2 g/dL (32-36); Mean Corpuscular Hgb 28.4 pg (27.0-32.0); Mean Corpuscular Volume 85.5 fL (81-99); Mean Platelet Vol. 12.6 fl (6.2-12.0); Platelet Count 165 K/mm3 (150-450); RBC Distribution Width CV 13.9 % (11.6-14.6); RBC Distribution Width SD 43.3 fl (35.1-43.9); Red Blood Count 5.04 M/mm3 (4.2-5.4)
[2024-12-16 12:11] LABS: Anion Gap 8 (5-15); BUN 12 mg/dL (7-18); BUN/Creat Ratio 14.1 RATIO (10-20); Calcium,Total 9.3 mg/dL (8.5-10.1); Chloride 104 mmol/L (98-107); Creatinine, Serum 0.85 mg/dL (0.55-1.02); EST Glomerular Filtration Rate 70 mL/min (>60); Est Glom Filt Rate - Afr Amer 85 mL/min (>60); Glucose 98 mg/dL (74-106); Potassium 3.6 mmol/L (3.5-5.1); Sodium Level 141 mmol/L (136-145)
== END | disposition home or self-care (01) ==
LOC: LAB 10:51
PROVIDERS: PCP Family Medicine; Referring Provider Internal Medicine Cardiovascular Disease; Visit Provider Internal Medicine Cardiovascular Disease
DX: I48.19 Other persistent atrial fibrillation (principal)
CPT/HCPCS: 36415; 80048; 85027